=== PATIENT | male | born 1960 | race Caucasian/White ===

== ENCOUNTER 2020-02-26 05:59 | Inpatient (IN) ==
[2020-02-26] MEDS ORDERED: DIAZEPAM 5 MG TABLET PO ONE ×2 (06:00→16:38)
[2020-02-26] MEDS ORDERED: diphenhydrAMINE CAP 25 MG CAPSULE PO ONE (06:00)
[2020-02-26] MEDS ORDERED: ASPIRIN 325 MG TABLET PO ONE (06:00)
[2020-02-26] MEDS ORDERED: SODIUM CHLORIDE 0.9% 1,000 ML IV SCH (06:00)
[2020-02-26] MEDS ORDERED: diphenhydrAMINE CAP 25 MG CAPSULE ONE (06:49)
[2020-02-26] MEDS ORDERED: DIAZEPAM 5 MG TABLET ONE (06:49)
[2020-02-26 07:00] LABS: Basophils % 0.4 % (0.0-0.8); Eosinophils # 0.2 10*3/uL (0.0-0.87); Eosinophils % 3.5 % (0.00-10.9); Hematocrit 32.4 VOL% (42.0-52.0); Hemoglobin 9.6 GM/DL (14.0-18.0); Immature Granulocytes % 0.2 %; Immature Granulocytes Absolute 0.01 #; Lymphocytes # 1.3 10*3/uL (1.4-4.0); Lymphocytes % 28.5 % (21.2-54.2); Mean Corpuscular HGB Conc 29.6 GM/DL (32-36); Mean Corpuscular Volume 74.3 FL (87-102); Mean Platelet Volume 10.2 FL (9.6-12.0); Monocytes % 17.4 % (1.7-12.7); Platelet Count 366 T/CUMM (130-400); Red Blood Count 4.36 MC/CUMM (3.8-5.5); Red Cell Distribution Width 14.6 % (9.3-17.3); White Blood Count 4.6 T/CUMM (4-12)
[2020-02-26 07:20] LABS: Eosinophils 5 % (0-10); Lymphocytes 38 % (20-55); Segmented Neutrophils 43 % (50-85); Total Cells Counted 100
[2020-02-26 07:21] LABS: Hypochromasia 1+; Microcytosis 1+; Platelet Estimate Adequate
[2020-02-26 07:31] LABS: Calcium 8.6 MG/DL (8.5-10.1); Osmolality,Calculated 271.8 MOS/KG (273-304)
[2020-02-26] MEDS ORDERED: HEPARIN/NACL 0.9% 2 UNITS/ML 1,000 ML IV ONE (08:13)
[2020-02-26] MEDS ORDERED: NITROGLYCERIN DRIP 0 MG/0 ML BOTTLE IV ONE (08:13)
[2020-02-26] MEDS ORDERED: LIDOCAINE 1% 20 ML VIAL ONE (08:13)
[2020-02-26] MEDS ORDERED: VERAPAMIL 5 MG/2 ML VIAL ONE (08:13)
[2020-02-26] MEDS ORDERED: MIDAZOLAM 2 MG/2 ML VIAL ONE (08:37)
[2020-02-26] MEDS ORDERED: fentaNYL 100 MCG/2 ML VIAL ONE (08:37)
[2020-02-26] MEDS ORDERED: HEPARIN 5,000 UNIT/1 ML VIAL ONE (08:55)
[2020-02-26] MEDS ORDERED: NITROGLYCERIN DRIP 50 MG/250 ML BOTTLE IV ONE (09:00)
[2020-02-26] MEDS ORDERED: ZALEPLON 5 MG CAPSULE PO PRN (09:05)
[2020-02-26] MEDS ORDERED: ONDANSETRON 4 MG/2 ML VIAL IV PRN (09:05)
[2020-02-26] MEDS ORDERED: DEXTROSE 10% 250 ML BAG IV PRN (15:29)
[2020-02-26] MEDS ORDERED: GLUCAGON 1 MG VIAL IM PRN (15:29)
[2020-02-26] MEDS ORDERED: MORPHINE 4 MG/1 ML VIAL IV PRN (15:40)
[2020-02-26] MEDS ORDERED: oxyCODONE/ACETAMINOPHEN 5-325 MG TABLET PO PRN (15:41)
[2020-02-26] MEDS ORDERED: NITROGLYCERIN SL 0.4 MG TABLET SL PRN (15:41)
[2020-02-26] MEDS ORDERED: FAMOTIDINE 20 MG TABLET PO ONE (16:38)
[2020-02-26] MEDS: ATORVASTATIN 80 MG TABLET PO SCH (21:57)
[2020-02-26] MEDS: METOPROLOL TARTRATE 25 MG TABLET PO SCH (21:57)
[2020-02-27 06:04] LABS: Basophils % 0.6 % (0.0-0.8); Eosinophils # 0.2 10*3/uL (0.0-0.87); Eosinophils % 3.9 % (0.00-10.9); Hematocrit 31.2 VOL% (42.0-52.0); Hemoglobin 9.2 GM/DL (14.0-18.0); Immature Granulocytes % 0.2 %; Immature Granulocytes Absolute 0.01 #; Lymphocytes # 1.7 10*3/uL (1.4-4.0); Lymphocytes % 36.8 % (21.2-54.2); Mean Corpuscular HGB Conc 29.5 GM/DL (32-36); Mean Corpuscular Volume 74.3 FL (87-102); Mean Platelet Volume 10.6 FL (9.6-12.0); Monocytes % 16.1 % (1.7-12.7); Neutrophils % 42.4 % (38.7-73.9); Platelet Count 332 T/CUMM (130-400); Red Cell Distribution Width 14.6 % (9.3-17.3); White Blood Count 4.7 T/CUMM (4-12)
[2020-02-27 06:16] LABS: Albumin 2.9 G/DL (3.4-5.0); Bilirubin,Total 0.5 MG/DL (0.2-1.0); Calcium 8.3 MG/DL (8.5-10.1); Osmolality,Calculated 273.7 MOS/KG (273-304); Total Protein 6.1 G/DL (6.4-8.3)
[2020-02-27 06:25] LABS: Calcium 8.4 MG/DL (8.5-10.1); Osmolality,Calculated 271.7 MOS/KG (273-304)
[2020-02-27 07:22] LABS: Anisocytosis 1+; Band Neutrophils 12 % (0-10); Lymphocytes 40 % (20-55); Platelet Estimate Normal; Segmented Neutrophils 31 % (50-85); Total Cells Counted 100
[2020-02-27] MEDS: METOPROLOL TARTRATE 25 MG TABLET PO SCH ×2 (09:04→21:57)
[2020-02-27] MEDS: PANTOPRAZOLE 40 MG TABLET PO SCH (09:04)
[2020-02-27] MEDS: ASPIRIN EC 325 MG TABLET PO SCH (09:04)
[2020-02-27] MEDS: ISOSORBIDE MONONITRATE 30 MG TABLET PO SCH (09:04)
[2020-02-27] MEDS: CHLORHEXIDINE 4% SOLN 118 ML BOTTLE TOP SCH ×3 (09:05→21:57)
[2020-02-27] MEDS: CHLORHEXIDINE 0.12% ORAL RINSE 60 ML BOTTLE SWISH/SPIT SCH ×2 (09:05→21:56)
[2020-02-27] MEDS: lisinopriL 20 MG TABLET PO SCH (09:05)
[2020-02-27] MEDS ORDERED: METOCLOPRAMIDE 10 MG/2 ML VIAL ONE (13:37)
[2020-02-27 13:49] LABS: ABG Base Excess 2.7 MMOL/L (-2.5-2.5); ABG HCO3 26.8 MMOL/L (20-26); ABG Oxygen Saturation 96.5 % (95-100); ABG PCO2 43.3 MM HG (35-48); ABG PH 7.413 (7.35-7.45); ABG PO2 81.9 MM HG (80-95); ABG TCO2 25.4 MMOL/L (23-27); Allen Test Positive; Pt O2 Delivery Device Room Air
[2020-02-27] MEDS ORDERED: SIMVASTATIN 20 MG TABLET PO SCH (21:00)
[2020-02-27] MEDS: ATORVASTATIN 80 MG TABLET PO SCH (21:56)
[2020-02-28] MEDS ORDERED: PAPAVERINE 60 MG/2 ML VIAL ONE (04:33)
[2020-02-28] MEDS ORDERED: VANCOMYCIN 1,000 MG VIAL ONE (04:33)
[2020-02-28] MEDS ORDERED: VANCOMYCIN 500 MG VIAL ONE (04:33)
[2020-02-28] MEDS ORDERED: FAMOTIDINE 20 MG TABLET PO ONE (05:00)
[2020-02-28] MEDS ORDERED: CEFUROXIME INJ 1,500 MG in SYRINGE 1 EACH IV ONE (05:00)
[2020-02-28] MEDS ORDERED: DIAZEPAM 5 MG TABLET PO ONE (05:00)
[2020-02-28] MEDS ORDERED: SODIUM CHLORIDE 0.9% 1,000 ML IV SCH (05:00)
[2020-02-28 07:40] LABS: ABG Base Excess 1.6 MMOL/L (-2.5-2.5); ABG HCO3 25.9 MMOL/L (20-26); ABG PCO2 37.9 MM HG (35-48); ABG TCO2 23.9 MMOL/L (23-27); Glucose Heart Surgery 97 MG/DL (74-106); Hematocrit Heart Surgery 25.4 PERCENT (42-52); Hemoglobin Heart Surgery 8.2 G/DL (14.0-18.0); Ionized Calcium Arterial 1.08 MMOL/L (1.21-1.46); PCO2 Patient Temp Arterial 37.9 MMHG; Patient Temperature 37 CELCIUS; Potassium Heart/CVR 3.3 MMOL/L (3.5-5.1); Sodium Heart/CVR 138 MMOL/L (135-145)
[2020-02-28 08:31] LABS: Apearance,Urine CLEAR (Clear); Bilirubin,Urine Negative (Negative); Blood, Urine Negative (Negative); Glucose,Urine (UA) Negative (Negative); Ketones,Urine Negative (Negative); Mucus,Urine Occasional /LPF (Occasional); Nitrite,Urine Negative (Negative); Protein,Urine Negative; Urine Color Yellow (Yellow); Urine Specific Gravity 1.013 (1.001-1.035); Urine Urobilinogen < 2.0 EU/DL (0.2-1.0)
[2020-02-28 09:09] LABS: Hematocrit Heart Surgery 18.1 PERCENT (42-52); PCO2 Patient Temp Venous 34.1 MM HG; PH Patient Temp Venous 7.502; PO2 Patient Temp Venous 29.9 MM HG; Potassium Heart/CVR 3.9 MMOL/L (3.5-5.1); VBG Base Excess 3.7 MEQ/L (0-4); VBG HCO3 27.5 MEQ/L (24-28); VBG Oxygen Saturation 70.7 %; VBG PCO2 39.4 MMHG (41-51); VBG PH 7.457; VBG PO2 36.8 MMHG (17-40)
[2020-02-28 09:10] LABS: Hemoglobin Heart Surgery 5.7 G/DL (14.0-18.0)
[2020-02-28] MEDS ORDERED: HEPARIN/NACL 0.9% 2 UNITS/ML 500 ML IV ONE (09:16)
[2020-02-28] MEDS ORDERED: SEVOFLURANE 1 UNIT/15 MINUTE INH ONE (09:16)
[2020-02-28] MEDS ORDERED: LIDOCAINE 2% 5 ML VIAL ONE ×2 (09:16→10:36)
[2020-02-28] MEDS ORDERED: CALCIUM CHLORIDE 1,000 MG/10 ML VIAL IV ONE (09:16)
[2020-02-28] MEDS ORDERED: PHENYLEPHRINE DRIP 20 MG/250 ML PREMIX IV ONE (09:16)
[2020-02-28] MEDS ORDERED: MIDAZOLAM 10 MG/2 ML VIAL ONE ×2 (09:17)
[2020-02-28] MEDS ORDERED: MINERAL OIL/PETROLATUM OPH OINT 3.5 GM TUBE ONE (09:17)
[2020-02-28] MEDS ORDERED: SUFentanil 250 MCG/5 ML AMP ONE (09:17)
[2020-02-28] MEDS ORDERED: VECURONIUM 10 MG VIAL IV ONE (09:17)
[2020-02-28] MEDS ORDERED: SODIUM CHLORIDE 0.9% 250 ML IV ONE (09:18)
[2020-02-28] MEDS ORDERED: AMINOCAPROIC ACID 5,000 MG/20 ML VIAL ONE (09:18)
[2020-02-28] MEDS ORDERED: SODIUM CHLORIDE 0.9% 1,000 ML IV ONE (09:18)
[2020-02-28] MEDS ORDERED: PHENYLEPHRINE 1 MG/10 ML SYRINGE IV ONE (09:18)
[2020-02-28] MEDS ORDERED: ETOMIDATE 40 MG/20 ML VIAL IV ONE (09:18)
[2020-02-28] MEDS ORDERED: SODIUM CHLORIDE 0.9% 100 ML IV ONE (09:18)
[2020-02-28] MEDS ORDERED: LACTATED RINGERS 1,000 ML IV ONE (09:18)
[2020-02-28 09:37] LABS: Hematocrit Heart Surgery 23.6 PERCENT (42-52); Hemoglobin Heart Surgery 7.6 G/DL (14.0-18.0); PCO2 Patient Temp Venous 33.4 MM HG; PH Patient Temp Venous 7.49; Potassium Heart/CVR 4.2 MMOL/L (3.5-5.1); VBG Base Excess 2.4 MEQ/L (0-4); VBG HCO3 26.2 MEQ/L (24-28); VBG Oxygen Saturation 74.8 %; VBG PCO2 38.6 MMHG (41-51); VBG PH 7.445; VBG PO2 38.2 MMHG (17-40)
[2020-02-28] MEDS ORDERED: PHENYLEPHRINE DRIP 40 MG/250 ML PREMIX IV ONE (09:40)
[2020-02-28] MEDS ORDERED: POTASSIUM CHLORIDE RIDER 100 ML IV ONE (09:40)
[2020-02-28 10:25] LABS: ABG Base Excess 0.6 MMOL/L (-2.5-2.5); ABG PCO2 40.5 MM HG (35-48); ABG PH 7.403 (7.35-7.45); ABG TCO2 23.3 MMOL/L (23-27); Glucose Heart Surgery 192 MG/DL (74-106); Hematocrit Heart Surgery 27.8 PERCENT (42-52); Ionized Calcium Arterial 1.18 MMOL/L (1.21-1.46); PCO2 Patient Temp Arterial 40.5 MMHG; PH Patient Temp Arterial 7.403; Patient Temperature 37 CELCIUS; Potassium Heart/CVR 3.6 MMOL/L (3.5-5.1); Sodium Heart/CVR 135 MMOL/L (135-145)
[2020-02-28] MEDS ORDERED: PROTAMINE SULFATE 250 MG/25 ML VIAL IV ONE (10:36)
[2020-02-28] MEDS ORDERED: SODIUM BICARBONATE 50 MEQ/50 ML VIAL IV ONE (10:36)
[2020-02-28] MEDS ORDERED: ALBUMIN 25% 25 GM/100 ML VIAL IV ONE (10:36)
[2020-02-28] MEDS ORDERED: DEXTROSE 5% KCL 20 MEQ 20 MEQ/1,000 ML BAG IV ONE (10:36)
[2020-02-28] MEDS ORDERED: MANNITOL 100 GM/500 ML BAG IV ONE (10:36)
[2020-02-28] MEDS ORDERED: HEPARIN 10,000 UNIT/10 ML VIAL ONE (10:36)
[2020-02-28] MEDS ORDERED: methylPREDNISolone SOD SUC 1,000 MG/8 ML VIAL ONE (10:36)
[2020-02-28] MEDS ORDERED: MAGNESIUM SULFATE 5 GM/10 ML VIAL IV ONE (10:36)
[2020-02-28] MEDS ORDERED: PROTAMINE SULFATE 50 MG/5 ML VIAL IV ONE (10:37)
[2020-02-28] MEDS ORDERED: FUROSEMIDE 20 MG/2 ML VIAL ONE (10:37)
[2020-02-28] MEDS ORDERED: MAGNESIUM SULF RIDER 2 GM in PREMIX 1 EACH IV PRN (11:02)
[2020-02-28] MEDS ORDERED: MORPHINE 4 MG/1 ML VIAL IV PRN (11:02)
[2020-02-28] MEDS ORDERED: SODIUM CHLORIDE 0.45% 1,000 ML IV SCH (11:02)
[2020-02-28] MEDS ORDERED: CALCIUM CHLORIDE 1,000 MG/10 ML SYRINGE IV PRN (11:02)
[2020-02-28] MEDS ORDERED: MIDAZOLAM 2 MG/2 ML VIAL IV PRN (11:02)
[2020-02-28] MEDS ORDERED: LACTATED RINGERS 250 ML IV PRN (11:02)
[2020-02-28] MEDS ORDERED: PHENYLEPHRINE DRIP 40 MG/250 ML PREMIX IV PRN (11:02)
[2020-02-28] MEDS ORDERED: CHLORHEXIDINE 4% SOLN 118 ML BOTTLE TOP PRN (11:02)
[2020-02-28] MEDS ORDERED: INSULIN REGULAR 100 UNIT/ML IV PRN (11:02)
[2020-02-28] MEDS ORDERED: VECURONIUM 10 MG VIAL IV PRN ×2 (11:02)
[2020-02-28] MEDS ORDERED: ONDANSETRON 4 MG/2 ML VIAL IV PRN (11:02)
[2020-02-28] MEDS ORDERED: MAGNESIUM SULF RIDER 4 GM in PREMIX 1 EACH IV PRN (11:02)
[2020-02-28] MEDS ORDERED: DEXTROSE 10% 250 ML BAG IV PRN ×2 (11:02)
[2020-02-28] MEDS ORDERED: ACETAMINOPHEN 650 MG SUPP RECTAL PRN (11:02)
[2020-02-28] MEDS ORDERED: MORPHINE 10 MG/1 ML VIAL IV PRN (11:02)
[2020-02-28] MEDS ORDERED: INSULIN REGULAR 100 UNIT/ML IV ONE (11:02)
[2020-02-28] MEDS ORDERED: ALBUMIN 5% 12.5 GM in PREMIX 1 EACH IV PRN (11:02)
[2020-02-28] MEDS ORDERED: NITROPRUSSIDE 100 MG in DEXTROSE 5% 250 ML IV PRN (11:02)
[2020-02-28] MEDS: LACTATED RINGERS 1,000 ML IV PRN ×4 (11:15→15:16)
[2020-02-28 11:29] LABS: ABG Base Excess 2.4 MMOL/L (-2.5-2.5); ABG HCO3 26.6 MMOL/L (20-26); ABG Oxygen Saturation 99.9 % (95-100); ABG PCO2 43.4 MM HG (35-48); ABG PH 7.408 (7.35-7.45); ABG TCO2 24.9 MMOL/L (23-27); Glucose Heart Surgery 164 MG/DL (74-106); Hematocrit Heart Surgery 30.7 PERCENT (42-52); Hemoglobin Heart Surgery 9.9 G/DL (14.0-18.0); Potassium Heart/CVR 3.5 MMOL/L (3.5-5.1)
[2020-02-28 11:48] LABS: Basophils % 0.2 % (0.0-0.8); Eosinophils # 0.1 10*3/uL (0.0-0.87); Eosinophils % 0.7 % (0.00-10.9); Hematocrit 31.7 VOL% (42.0-52.0); Hemoglobin 9.7 GM/DL (14.0-18.0); Immature Granulocytes % 0.8 %; Immature Granulocytes Absolute 0.08 #; Lymphocytes # 0.7 10*3/uL (1.4-4.0); Lymphocytes % 6.8 % (21.2-54.2); Mean Corpuscular HGB Conc 30.6 GM/DL (32-36); Mean Corpuscular Volume 74.9 FL (87-102); Mean Platelet Volume 10.2 FL (9.6-12.0); Monocytes % 4.7 % (1.7-12.7); Neutrophils % 86.8 % (38.7-73.9); Platelet Count 267 T/CUMM (130-400); Red Blood Count 4.23 MC/CUMM (3.8-5.5); Red Cell Distribution Width 15.9 % (9.3-17.3); White Blood Count 10.3 T/CUMM (4-12)
[2020-02-28] MEDS: SODIUM CHLORIDE 0.45% 1,000 ML IV SCH (11:49)
[2020-02-28 11:53] LABS: Albumin 3.2 G/DL (3.4-5.0); Bilirubin,Total 0.7 MG/DL (0.2-1.0); Calcium 7.8 MG/DL (8.5-10.1); Osmolality,Calculated 275.7 MOS/KG (273-304); Total Protein 6.1 G/DL (6.4-8.3)
[2020-02-28 11:54] LABS: INR 1.2; PT Patient Result 12.4 SECS (9.8-11.9); Partial Thromboplastin Time 27.3 SECS (23.9-33.8)
[2020-02-28] MEDS: POTASSIUM CHLORIDE RIDER 20 MEQ in PREMIX 1 EACH IV PRN ×3 (11:54→16:30)
[2020-02-28 11:58] LABS: CKMB % 6.7 %
[2020-02-28 12:01] LABS: Troponin I 5.03 NG/ML (0.00-0.045)
[2020-02-28] MEDS: POTASSIUM CHLORIDE RIDER 10 MEQ in PREMIX 1 EACH IV PRN ×2 (12:24→15:11)
[2020-02-28] MEDS: INSULIN REGULAR DRIP 100 ML IV SCH (13:00)
[2020-02-28 13:03] LABS: Hypochromasia 3+; Poikilocytosis 1+
[2020-02-28 13:04] LABS: Ovalocytes Slight
[2020-02-28] MEDS ORDERED: NITROPRUSSIDE 50 MG/2 ML VIAL ONE (13:04)
[2020-02-28 14:20] LABS: ABG Base Excess 2.5 MMOL/L (-2.5-2.5); ABG HCO3 26.7 MMOL/L (20-26); ABG Oxygen Saturation 99.6 % (95-100); ABG PCO2 44.4 MM HG (35-48); ABG PH 7.402 (7.35-7.45); ABG TCO2 25.3 MMOL/L (23-27); Glucose Heart Surgery 101 MG/DL (74-106); Hematocrit Heart Surgery 29.2 PERCENT (42-52); Hemoglobin Heart Surgery 9.4 G/DL (14.0-18.0); Potassium Heart/CVR 3.4 MMOL/L (3.5-5.1)
[2020-02-28] MEDS: KETOROLAC 30 MG/1 ML VIAL IV SCH ×2 (14:34→19:18)
[2020-02-28] MEDS: MIDAZOLAM 10 MG/2 ML VIAL IV PRN ×2 (14:36→15:35)
[2020-02-28] MEDS ORDERED: HALOPERIDOL 5 MG/ML AMP IV ONE (16:13)
[2020-02-28 16:30] LABS: ABG Base Excess 2.3 MMOL/L (-2.5-2.5); ABG HCO3 26.5 MMOL/L (20-26); ABG Oxygen Saturation 99.2 % (95-100); ABG PCO2 45.3 MM HG (35-48); ABG PH 7.393 (7.35-7.45); ABG TCO2 25.3 MMOL/L (23-27); Glucose Heart Surgery 164 MG/DL (74-106); Hematocrit Heart Surgery 28.7 PERCENT (42-52); Hemoglobin Heart Surgery 9.2 G/DL (14.0-18.0)
[2020-02-28 18:41] LABS: ABG Base Excess 1.8 MMOL/L (-2.5-2.5); ABG PCO2 46.1 MM HG (35-48); ABG PH 7.381 (7.35-7.45); ABG TCO2 24.7 MMOL/L (23-27); Glucose Heart Surgery 160 MG/DL (74-106); Hematocrit Heart Surgery 33.4 PERCENT (42-52); Hemoglobin Heart Surgery 10.8 G/DL (14.0-18.0); Potassium Heart/CVR 4.4 MMOL/L (3.5-5.1)
[2020-02-28] MEDS: CEFUROXIME INJ 1,500 MG in SYRINGE 1 EACH IV SCH (19:21)
[2020-02-28 19:56] LABS: CKMB % 5.7 %
[2020-02-28 20:00] LABS: Troponin I 7.62 NG/ML (0.00-0.045)
[2020-02-28] MEDS: CHLORHEXIDINE 0.12% ORAL RINSE 60 ML BOTTLE SWISH/SPIT SCH (21:06)
[2020-02-28] MEDS ORDERED: FUROSEMIDE 40 MG/4 ML VIAL IV ONE (23:14)
[2020-02-29] MEDS: KETOROLAC 30 MG/1 ML VIAL IV SCH ×4 (03:11→19:58)
[2020-02-29 04:28] LABS: Basophils % 0.1 % (0.0-0.8); Hematocrit 33.7 VOL% (42.0-52.0); Hemoglobin 10.8 GM/DL (14.0-18.0); Immature Granulocytes % 0.4 %; Immature Granulocytes Absolute 0.05 #; Lymphocytes # 0.7 10*3/uL (1.4-4.0); Mean Corpuscular Volume 72.6 FL (87-102); Mean Platelet Volume 10.9 FL (9.6-12.0); Neutrophils % 87.5 % (38.7-73.9); Platelet Count 268 T/CUMM (130-400); Red Blood Count 4.64 MC/CUMM (3.8-5.5); Red Cell Distribution Width 15.9 % (9.3-17.3); White Blood Count 12.1 T/CUMM (4-12)
[2020-02-29 04:29] LABS: ABG HCO3 26.2 MMOL/L (20-26); ABG Oxygen Saturation 97.5 % (95-100); ABG PCO2 41.2 MM HG (35-48); ABG PH 7.419 (7.35-7.45); ABG PO2 91.5 MM HG (80-95); ABG TCO2 23.9 MMOL/L (23-27); Glucose Heart Surgery 134 MG/DL (74-106); Hematocrit Heart Surgery 33.9 PERCENT (42-52); Potassium Heart/CVR 3.6 MMOL/L (3.5-5.1)
[2020-02-29] MEDS: POTASSIUM CHLORIDE RIDER 20 MEQ in PREMIX 1 EACH IV PRN ×2 (04:48→05:20)
[2020-02-29 05:01] LABS: Bilirubin,Direct 0.11 MG/DL (0.0-0.20); Bilirubin,Total 0.4 MG/DL (0.2-1.0); CKMB % 5.2 %; Calcium 7.8 MG/DL (8.5-10.1); Osmolality,Calculated 276.5 MOS/KG (273-304)
[2020-02-29 05:02] LABS: Troponin I 6.14 NG/ML (0.00-0.045)
[2020-02-29 05:05] LABS: Hypochromasia Slight; Ovalocytes Slight; Platelet Estimate Adequate
[2020-02-29] MEDS: CEFUROXIME INJ 1,500 MG in SYRINGE 1 EACH IV SCH ×2 (06:04→18:17)
[2020-02-29] MEDS ORDERED: LORazepam 2 MG/1 ML VIAL IV ONE ×2 (08:40→09:20)
[2020-02-29] MEDS: ASPIRIN EC 81 MG TABLET PO SCH (08:58)
[2020-02-29] MEDS: THIAMINE 100 MG TABLET PO SCH (08:58)
[2020-02-29] MEDS: FOLIC ACID 1 MG TABLET PO SCH (08:58)
[2020-02-29] MEDS: lisinopriL 20 MG TABLET PO SCH ×2 (08:58→19:01)
[2020-02-29] MEDS: MULTIVITAMIN (CENTRUM) TABLET PO SCH (08:58)
[2020-02-29] MEDS: CHLORHEXIDINE 0.12% ORAL RINSE 60 ML BOTTLE SWISH/SPIT SCH ×3 (08:59→21:44)
[2020-02-29] MEDS: INSULIN REGULAR DRIP 100 ML IV SCH (11:05)
[2020-02-29 11:08] LABS: ABG PCO2 41.7 MM HG (35-48); ABG PH 7.428 (7.35-7.45); ABG TCO2 24.7 MMOL/L (23-27); Glucose Heart Surgery 145 MG/DL (74-106); Hematocrit Heart Surgery 34.1 PERCENT (42-52); Hemoglobin Heart Surgery 11.1 G/DL (14.0-18.0); Potassium Heart/CVR 3.7 MMOL/L (3.5-5.1)
[2020-02-29] MEDS: POTASSIUM CHLORIDE RIDER 10 MEQ in PREMIX 1 EACH IV PRN ×2 (11:17→12:16)
[2020-02-29 11:39] LABS: CKMB % 3.3 %
[2020-02-29 11:41] LABS: Troponin I 4.29 NG/ML (0.00-0.045)
[2020-02-29] MEDS ORDERED: DEXTROSE 10% 250 ML BAG IV PRN (12:13)
[2020-02-29] MEDS ORDERED: MAGNESIUM SULF RIDER 2 GM in PREMIX 1 EACH IV PRN (12:13)
[2020-02-29] MEDS ORDERED: SODIUM CHLOR 0.45% KCL 20 MEQ 20 MEQ/1,000 ML BAG IV SCH (12:13)
[2020-02-29] MEDS ORDERED: ACETAMINOPHEN 325 MG TABLET PO PRN (12:13)
[2020-02-29] MEDS ORDERED: GLUCAGON 1 MG VIAL IM PRN (12:13)
[2020-02-29] MEDS ORDERED: MAGNESIUM SULF RIDER 4 GM in PREMIX 1 EACH IV PRN (12:13)
[2020-02-29] MEDS ORDERED: ONDANSETRON 4 MG/2 ML VIAL IV PRN (12:13)
[2020-02-29] MEDS ORDERED: ZALEPLON 5 MG CAPSULE PO PRN (12:13)
[2020-02-29] MEDS ORDERED: MAGNESIUM HYDROXIDE SUSP 30 ML UDCUP PO PRN (12:13)
[2020-02-29] MEDS ORDERED: ALUMINUM/MAGNES/SIMETH MAX STR 30 ML UDCUP PO PRN (12:13)
[2020-02-29] MEDS ORDERED: oxyCODONE/ACETAMINOPHEN 5-325 MG TABLET PO PRN (12:13)
[2020-02-29] MEDS: SODIUM CHLORIDE 0.45% 1,000 ML IV SCH (12:33)
[2020-02-29] MEDS: ISOSORBIDE MONONITRATE 30 MG TABLET PO SCH (19:01)
[2020-02-29] MEDS: PANTOPRAZOLE 40 MG TABLET PO SCH (19:01)
[2020-02-29] MEDS: METOPROLOL TARTRATE 25 MG TABLET PO SCH (19:01)
[2020-02-29] MEDS: ASPIRIN EC 325 MG TABLET PO SCH (19:01)
[2020-02-29] MEDS: SIMVASTATIN 20 MG TABLET PO SCH (21:44)
[2020-03-01] MEDS: KETOROLAC 30 MG/1 ML VIAL IV SCH ×4 (03:35→21:25)
[2020-03-01] MEDS ORDERED: FUROSEMIDE 40 MG/4 ML VIAL IV ONE (06:00)
[2020-03-01 06:21] LABS: Basophils % 0.1 % (0.0-0.8); Hematocrit 32.6 VOL% (42.0-52.0); Immature Granulocytes % 0.5 %; Immature Granulocytes Absolute 0.06 #; Lymphocytes # 1.3 10*3/uL (1.4-4.0); Lymphocytes % 11.5 % (21.2-54.2); Mean Corpuscular HGB Conc 30.7 GM/DL (32-36); Mean Corpuscular Volume 75.5 FL (87-102); Mean Platelet Volume 10.9 FL (9.6-12.0); Monocytes % 12.3 % (1.7-12.7); Neutrophils % 75.6 % (38.7-73.9); Platelet Count 257 T/CUMM (130-400); Red Blood Count 4.32 MC/CUMM (3.8-5.5); Red Cell Distribution Width 16.5 % (9.3-17.3); White Blood Count 11.3 T/CUMM (4-12)
[2020-03-01 06:40] LABS: Albumin 2.7 G/DL (3.4-5.0); Bilirubin,Direct 0.1 MG/DL (0.0-0.20); Bilirubin,Total 0.5 MG/DL (0.2-1.0); Calcium 8.1 MG/DL (8.5-10.1); Osmolality,Calculated 273.7 MOS/KG (273-304); Total Protein 5.7 G/DL (6.4-8.3)
[2020-03-01 06:41] LABS: Folate 5.1 NG/ML (5.4-24.0)
[2020-03-01 06:58] LABS: Alanine Aminotransferase 20 U/L (16-61); Albumin 2.6 G/DL (3.4-5.0); Alkaline Phosphatase 71 U/L (45-117); Aspartate Amino Transferase 37 U/L (0-37); Bilirubin,Direct < 0.100 MG/DL (0.0-0.20); Bilirubin,Indirect 0.3 MG/DL (0.0-1.0); Total Protein 5.7 G/DL (6.4-8.3)
[2020-03-01] MEDS ORDERED: oxyCODONE/ACETAMINOPHEN 5-325 MG TABLET PO PRN (07:28)
[2020-03-01] MEDS ORDERED: LORazepam 2 MG/1 ML VIAL IV PRN (08:00)
[2020-03-01] MEDS: MULTIVITAMIN (CENTRUM) TABLET PO SCH (08:30)
[2020-03-01] MEDS: DOCUSATE SODIUM 100 MG CAPSULE PO SCH (08:31)
[2020-03-01] MEDS: lisinopriL 20 MG TABLET PO SCH (08:31)
[2020-03-01] MEDS: FOLIC ACID 1 MG TABLET PO SCH (08:31)
[2020-03-01] MEDS: ASPIRIN EC 81 MG TABLET PO SCH (08:31)
[2020-03-01] MEDS: THIAMINE 100 MG TABLET PO SCH (08:31)
[2020-03-01] MEDS: carvediloL 3.125 MG TABLET PO SCH ×2 (08:31→21:26)
[2020-03-01] MEDS: PANTOPRAZOLE 40 MG TABLET PO SCH (08:32)
[2020-03-01] MEDS: CHLORHEXIDINE 0.12% ORAL RINSE 60 ML BOTTLE SWISH/SPIT SCH ×2 (08:35→21:26)
[2020-03-01] MEDS: SIMVASTATIN 20 MG TABLET PO SCH (21:26)
[2020-03-02] MEDS: KETOROLAC 30 MG/1 ML VIAL IV SCH ×2 (02:42→08:40)
[2020-03-02 06:05] LABS: Basophils % 0.1 % (0.0-0.8); Eosinophils # 0.1 10*3/uL (0.0-0.87); Eosinophils % 0.6 % (0.00-10.9); Hematocrit 33.2 VOL% (42.0-52.0); Hemoglobin 10.2 GM/DL (14.0-18.0); Immature Granulocytes % 0.5 %; Immature Granulocytes Absolute 0.04 #; Lymphocytes # 1.6 10*3/uL (1.4-4.0); Lymphocytes % 19.9 % (21.2-54.2); Mean Corpuscular HGB Conc 30.7 GM/DL (32-36); Mean Corpuscular Volume 74.4 FL (87-102); Mean Platelet Volume 11.3 FL (9.6-12.0); Monocytes % 15.2 % (1.7-12.7); Neutrophils % 63.7 % (38.7-73.9); Platelet Count 262 T/CUMM (130-400); Red Blood Count 4.46 MC/CUMM (3.8-5.5); Red Cell Distribution Width 16.8 % (9.3-17.3); White Blood Count 7.9 T/CUMM (4-12)
[2020-03-02 06:32] LABS: Alanine Aminotransferase 27 U/L (16-61); Albumin 2.7 G/DL (3.4-5.0); Alkaline Phosphatase 70 U/L (45-117); Aspartate Amino Transferase 37 U/L (0-37); Bilirubin,Direct < 0.100 MG/DL (0.0-0.20); Blood Urea Nitrogen 11 MG/DL (7-18); Calcium 7.8 MG/DL (8.5-10.1); Estimated Glom Filtration Rate 140 ML/MIN; Glucose 92 MG/DL (74-106); Osmolality,Calculated 277.4 MOS/KG (273-304); Total Protein 6.1 G/DL (6.4-8.3)
[2020-03-02 06:36] LABS: Alanine Aminotransferase 27 U/L (16-61); Albumin 2.7 G/DL (3.4-5.0); Alkaline Phosphatase 68 U/L (45-117); Aspartate Amino Transferase 37 U/L (0-37); Bilirubin,Indirect 0.7 MG/DL (0.0-1.0)
[2020-03-02] MEDS: POTASSIUM CHLORIDE 20 MEQ TABLET PO PRN ×2 (06:45→08:39)
[2020-03-02] MEDS: CHLORHEXIDINE 0.12% ORAL RINSE 60 ML BOTTLE SWISH/SPIT SCH (08:39)
[2020-03-02] MEDS: MULTIVITAMIN (CENTRUM) TABLET PO SCH (08:39)
[2020-03-02] MEDS: PANTOPRAZOLE 40 MG TABLET PO SCH (08:39)
[2020-03-02] MEDS: lisinopriL 20 MG TABLET PO SCH (08:39)
[2020-03-02] MEDS: THIAMINE 100 MG TABLET PO SCH (08:40)
[2020-03-02] MEDS: ASPIRIN EC 81 MG TABLET PO SCH (08:40)
[2020-03-02] MEDS: carvediloL 3.125 MG TABLET PO SCH (08:40)
[2020-03-02] MEDS: FOLIC ACID 1 MG TABLET PO SCH (08:40)
[2020-03-02] MEDS: DOCUSATE SODIUM 100 MG CAPSULE PO SCH (08:40)
[2020-03-02] MEDS ORDERED: carvediloL 6.25 MG TABLET PO SCH (09:00)
[2020-03-02] MEDS ORDERED: ASPIRIN EC 325 MG TABLET PO SCH (09:00)
[2020-03-02 12:27] VITALS: BP 137/78
== END 2020-03-02 15:52 | disposition home or self-care (01) | DRG 234 ==
LOC: N.CL 05:59 → N.TELEN 15:33 → N.CVR 02-28 11:42 → N.TELES 02-29 17:27
PROVIDERS: ADMIT Internal Medicine Cardiovascular Disease; ATTEND Internal Medicine Cardiovascular Disease

== ENCOUNTER 2020-11-08 11:39 | Inpatient (IN) ==
[2020-11-08] MEDS ORDERED: SODIUM CHLORIDE 0.9% 1,000 ML IV PRN (12:22)
[2020-11-08] MEDS ORDERED: PANTOPRAZOLE 40 MG VIAL IV STA (12:23)
[2020-11-08 12:36] LABS: Albumin 3.8 G/DL (3.4-5.0); Bilirubin,Total 0.5 MG/DL (0.2-1.0); Calcium 8.7 MG/DL (8.5-10.1); Potassium 3.9 MMOL/L (3.5-5.1); Total Protein 7.6 G/DL (6.4-8.3)
[2020-11-08 12:57] LABS: Basophils % 0.3 % (0.0-0.8); Eosinophils # 0.1 10*3/uL (0.0-0.87); Eosinophils % 2.4 % (0.00-10.9); Immature Granulocytes % 0.5 %; Immature Granulocytes Absolute 0.02 #; Lymphocytes # 1.1 10*3/uL (1.4-4.0); Mean Corpuscular HGB Conc 22.8 GM/DL (32-36); Mean Corpuscular Volume 58.4 FL (87-102); Mean Platelet Volume 10.4 FL (9.6-12.0); Monocytes % 10.3 % (1.7-12.7); NRBC # 0.02 10*3/uL; Neutrophils % 56.5 % (38.7-73.9); Platelet Count 412 T/CUMM (130-400); Red Blood Count 3.08 MC/CUMM (3.8-5.5); Red Cell Distribution Width 21.3 % (9.3-17.3); White Blood Count 3.8 T/CUMM (4-12)
[2020-11-08 12:59] LABS: Hemoglobin 4.1 GM/DL (14.0-18.0)
[2020-11-08 13:06] LABS: Atypical Lymphocytes Moderate; Band Neutrophils 2 % (0-10); Eosinophils 2 % (0-10); Hypochromasia 4+; Lymphocytes 26 % (20-55); Microcytosis 4+; Segmented Neutrophils 57 % (50-85); Total Cells Counted 100
[2020-11-08 13:08] LABS: Polychromasia Slight; Reactive Lymphocytes Few; Schistocytes Few
[2020-11-08 13:09] LABS: Giant Platelets Few; Ovalocytes Few; Platelet Estimate Increased; Poikilocytosis 3+
[2020-11-08] MEDS ORDERED: DEXTROSE 50% 25 GM/50 ML VIAL IV PRN (13:35)
[2020-11-08] MEDS ORDERED: GLUCAGON 1 MG VIAL IM PRN (13:35)
[2020-11-08] MEDS ORDERED: ONDANSETRON 4 MG/2 ML VIAL IV PRN (13:35)
[2020-11-08 15:23] LABS: % Iron Saturation 1.3 % (18-50); Ferritin 1.1 ng/ml (26-388)
[2020-11-08 15:25] LABS: Folate 14.9 NG/ML (5.38-24.0)
[2020-11-08 16:19] LABS: Hematocrit 21.7 VOL% (42.0-52.0)
[2020-11-08 16:36] LABS: Hemoglobin 5.3 GM/DL (14.0-18.0)
[2020-11-08] MEDS: carvediloL 3.125 MG TABLET PO SCH (17:22)
[2020-11-08] MEDS: ATORVASTATIN 80 MG TABLET PO SCH (21:32)
[2020-11-08 23:15] LABS: Hematocrit 20.8 VOL% (42.0-52.0)
[2020-11-08 23:20] LABS: Hemoglobin 5.6 GM/DL (14.0-18.0)
[2020-11-09] MEDS ORDERED: SODIUM CHLORIDE 0.9% 1,000 ML IV PRN ×2 (00:11→03:32)
[2020-11-09 07:36] LABS: Basophils % 0.8 % (0.0-0.8); Eosinophils # 0.1 10*3/uL (0.0-0.87); Eosinophils % 3.3 % (0.00-10.9); Hematocrit 23.2 VOL% (42.0-52.0); Hemoglobin 6.5 GM/DL (14.0-18.0); Immature Granulocytes % 0.3 %; Immature Granulocytes Absolute 0.01 #; Lymphocytes # 1.3 10*3/uL (1.4-4.0); Lymphocytes % 34.8 % (21.2-54.2); Mean Platelet Volume 9.7 FL (9.6-12.0); Monocytes % 14.4 % (1.7-12.7); NRBC # 0.02 10*3/uL; Neutrophils % 46.4 % (38.7-73.9); Platelet Count 271 T/CUMM (130-400); Red Blood Count 3.57 MC/CUMM (3.8-5.5); Red Cell Distribution Width 29.7 % (9.3-17.3); White Blood Count 3.7 T/CUMM (4-12)
[2020-11-09 07:38] LABS: Albumin 3.4 G/DL (3.4-5.0); Bilirubin,Total 0.9 MG/DL (0.2-1.0); Calcium 8.5 MG/DL (8.5-10.1); Osmolality,Calculated 274.7 MOS/KG (273-304); Potassium 3.9 MMOL/L (3.5-5.1); Total Protein 6.5 G/DL (6.4-8.3)
[2020-11-09 07:46] LABS: Eosinophils 3 % (0-10); Hypochromasia 2+; Lymphocytes 37 % (20-55); Microcytosis 1+; Nucleated Red Blood Cells 1 (0-5); Platelet Estimate Adequate; Segmented Neutrophils 44 % (50-85); Total Cells Counted 100
[2020-11-09] MEDS: carvediloL 3.125 MG TABLET PO SCH ×2 (08:35→17:57)
[2020-11-09] MEDS: PANTOPRAZOLE 40 MG VIAL IV SCH (08:36)
[2020-11-09 12:09] LABS: Hematocrit 28.9 VOL% (42.0-52.0)
[2020-11-09 14:28] LABS: Hematocrit 27.6 VOL% (42.0-52.0); Hemoglobin 7.8 GM/DL (14.0-18.0)
[2020-11-09 20:04] LABS: Hemoglobin 7.9 GM/DL (14.0-18.0)
[2020-11-09] MEDS: ATORVASTATIN 80 MG TABLET PO SCH (21:02)
[2020-11-10 05:58] LABS: Basophils % 0.8 % (0.0-0.8); Eosinophils # 0.1 10*3/uL (0.0-0.87); Eosinophils % 3.6 % (0.00-10.9); Hematocrit 25.4 VOL% (42.0-52.0); Hemoglobin 7.2 GM/DL (14.0-18.0); Immature Granulocytes % 0.3 %; Immature Granulocytes Absolute 0.01 #; Lymphocytes # 1.4 10*3/uL (1.4-4.0); Lymphocytes % 35.6 % (21.2-54.2); Mean Corpuscular HGB Conc 28.3 GM/DL (32-36); Mean Corpuscular Volume 68.1 FL (87-102); Neutrophils % 45.7 % (38.7-73.9); Platelet Count 285 T/CUMM (130-400); Red Blood Count 3.73 MC/CUMM (3.8-5.5); Red Cell Distribution Width 30.5 % (9.3-17.3); White Blood Count 3.9 T/CUMM (4-12)
[2020-11-10 06:24] LABS: Calcium 8.6 MG/DL (8.5-10.1); Hypochromasia 2+; Microcytosis 1+; Osmolality,Calculated 279.3 MOS/KG (273-304); Ovalocytes Slight; Platelet Estimate Adequate
[2020-11-10] MEDS ORDERED: LACTATED RINGERS 1,000 ML IV SCH (08:00)
[2020-11-10] MEDS: PANTOPRAZOLE 40 MG VIAL IV SCH (08:47)
[2020-11-10] MEDS: carvediloL 3.125 MG TABLET PO SCH ×2 (08:49→16:04)
[2020-11-10] MEDS ORDERED: LIDOCAINE 2% 5 ML VIAL ONE (10:55)
[2020-11-10] MEDS ORDERED: propofoL 200 MG/20 ML VIAL IV ONE ×2 (10:55→11:05)
[2020-11-10] MEDS: ATORVASTATIN 80 MG TABLET PO SCH (21:18)
[2020-11-11 05:40] LABS: Basophils % 0.7 % (0.0-0.8); Eosinophils # 0.2 10*3/uL (0.0-0.87); Hematocrit 25.8 VOL% (42.0-52.0); Hemoglobin 7.3 GM/DL (14.0-18.0); Immature Granulocytes % 0.2 %; Immature Granulocytes Absolute 0.01 #; Lymphocytes # 1.3 10*3/uL (1.4-4.0); Mean Corpuscular HGB Conc 28.3 GM/DL (32-36); Mean Corpuscular Volume 67.7 FL (87-102); Monocytes % 11.2 % (1.7-12.7); Neutrophils % 53.9 % (38.7-73.9); Platelet Count 332 T/CUMM (130-400); Red Blood Count 3.81 MC/CUMM (3.8-5.5); Red Cell Distribution Width 31.2 % (9.3-17.3); White Blood Count 4.3 T/CUMM (4-12)
[2020-11-11 06:26] LABS: Band Neutrophils 1 % (0-10); Eosinophils 6 % (0-10); Hypochromasia 1+; Lymphocytes 30 % (20-55); Microcytosis 2+; Platelet Estimate Normal; Segmented Neutrophils 53 % (50-85); Total Cells Counted 100
[2020-11-11] MEDS: carvediloL 3.125 MG TABLET PO SCH (08:23)
[2020-11-11] MEDS: PANTOPRAZOLE 40 MG VIAL IV SCH (08:23)
[2020-11-11 12:16] VITALS: BP 123/73
[2020-11-11] MEDS ORDERED: SODIUM CHLORIDE 0.9% 1,000 ML IV PRN (12:41)
== END 2020-11-11 15:10 | disposition home or self-care (01) | DRG 812 ==
LOC: N.ED 11:39 → N.EDINP 13:35 → SUATTDRO 13:35 → N.TELEN 15:04
PROVIDERS: ADMIT Internal Medicine; ATTEND Internal Medicine

== ENCOUNTER 2021-01-28 06:09 | Inpatient (IN) ==
[2021-01-24 11:22] LABS: Basophils % 0.8 % (0.0-0.8); Eosinophils # 0.2 10*3/uL (0.0-0.87); Hemoglobin 11.9 GM/DL (14.0-18.0); Immature Granulocytes Absolute 0.04 #; Lymphocytes # 1.2 10*3/uL (1.4-4.0); Lymphocytes % 30.2 % (21.2-54.2); Mean Corpuscular HGB Conc 30.5 GM/DL (32-36); Mean Corpuscular Volume 82.1 FL (87-102); Mean Platelet Volume 9.4 FL (9.6-12.0); Monocytes % 13.1 % (1.7-12.7); Neutrophils % 49.9 % (38.7-73.9); Platelet Count 301 T/CUMM (130-400); Red Blood Count 4.75 MC/CUMM (3.8-5.5)
[2021-01-24 11:33] LABS: Partial Thromboplastin Time 26.8 SECS (23.9-33.8)
[2021-01-24 11:43] LABS: Atypical Lymphocytes Few; Band Neutrophils 1 % (0-10); Calcium 8.5 MG/DL (8.5-10.1); Eosinophils 6 % (0-10); Hypochromasia 1+; Lymphocytes 31 % (20-55); Microcytosis 1+; Myelocytes 1 %; Osmolality,Calculated 276.7 MOS/KG (273-304); Ovalocytes Slight; Platelet Estimate Normal; Potassium 4.6 MMOL/L (3.5-5.1); Segmented Neutrophils 46 % (50-85); Total Cells Counted 100
[~2021-01-28 06:09] MED LIST: ACETAMINOPHEN 500 MG TABLET PO ONE; ALVIMOPAN 12 MG CAPSULE PO ONE; DIAZEPAM 5 MG TABLET PO ONE; FAMOTIDINE 20 MG TABLET PO ONE; cefOXitin 1,000 MG in SODIUM CHLORIDE 0.9% 100 ML IV ONE
[2021-01-28] MEDS ORDERED: fentaNYL 100 MCG/2 ML VIAL ONE ×2 (06:11→08:32)
[2021-01-28] MEDS ORDERED: MIDAZOLAM 2 MG/2 ML VIAL ONE (06:11)
[2021-01-28] MEDS ORDERED: DEXMEDETOMIDINE 200 MCG/2 ML VIAL ONE (06:12)
[2021-01-28] MEDS ORDERED: DEXAMETHASONE 4 MG/1 ML VIAL ONE ×3 (06:12→07:56)
[2021-01-28] MEDS ORDERED: LIDOCAINE 1% 5 ML VIAL ONE (06:12)
[2021-01-28] MEDS ORDERED: ROPIVACAINE 0.5% 30 ML VIAL ONE (06:12)
[2021-01-28] MEDS ORDERED: DIAZEPAM 5 MG TABLET ONE (06:13)
[2021-01-28] MEDS ORDERED: FAMOTIDINE 20 MG TABLET ONE (06:14)
[2021-01-28] MEDS ORDERED: ACETAMINOPHEN 500 MG TABLET ONE (06:14)
[2021-01-28] MEDS ORDERED: INDOCYANINE GREEN 25 MG VIAL IV ONE (06:32)
[2021-01-28] MEDS ORDERED: TISSUE ADHESIVE 1 EACH APPLICATOR TOP ONE ×2 (06:32→10:40)
[2021-01-28] MEDS: LACTATED RINGERS 1,000 ML IV SCH (06:49)
[2021-01-28] MEDS ORDERED: SEVOFLURANE 1 UNIT/15 MINUTE INH ONE ×13 (07:55→10:32)
[2021-01-28] MEDS ORDERED: propofoL 200 MG/20 ML VIAL IV ONE (07:55)
[2021-01-28] MEDS ORDERED: ROCURONIUM 50 MG/5 ML VIAL IV ONE ×2 (07:55→08:30)
[2021-01-28] MEDS ORDERED: LIDOCAINE 2% 5 ML VIAL ONE (07:55)
[2021-01-28] MEDS ORDERED: PHENYLEPHRINE 1 MG/10 ML SYRINGE IV ONE (07:55)
[2021-01-28] MEDS ORDERED: ONDANSETRON 4 MG/2 ML VIAL ONE (07:56)
[2021-01-28] MEDS ORDERED: KETOROLAC 30 MG/1 ML VIAL ONE (07:56)
[2021-01-28] MEDS ORDERED: LACTATED RINGERS 1,000 ML IV ONE (08:34)
[2021-01-28] MEDS ORDERED: GLYCOPYRROLATE 0.4 MG/2 ML VIAL ONE (09:57)
[2021-01-28] MEDS ORDERED: NEOSTIGMINE 10 MG/10 ML VIAL ONE (10:00)
[2021-01-28] MEDS ORDERED: ONDANSETRON 4 MG/2 ML VIAL IV PRN ×2 (10:40→11:28)
[2021-01-28] MEDS ORDERED: diphenhydrAMINE 50 MG/1 ML VIAL IV PRN (11:28)
[2021-01-28] MEDS ORDERED: PROMETHAZINE INJ 25 MG in SODIUM CHLORIDE 0.9% 50 ML IV PRN (11:28)
[2021-01-28] MEDS ORDERED: MEPERIDINE 25 MG/1 ML VIAL IV PRN (11:28)
[2021-01-28] MEDS: HYDROmorphone 2 MG/1 ML VIAL IV PRN ×4 (11:30→11:45)
[2021-01-28] MEDS: DEXTROSE 5% LACTATED RINGERS 1,000 ML IV SCH ×2 (11:51→20:34)
[2021-01-28 12:40] LABS: Hemoglobin 11.9 GM/DL (14.0-18.0)
[2021-01-28] MEDS: FERROUS SULFATE 325 MG TABLET PO SCH ×2 (15:42→20:32)
[2021-01-28] MEDS: ATORVASTATIN 80 MG TABLET PO SCH (20:32)
[2021-01-28] MEDS: ALVIMOPAN 12 MG CAPSULE PO SCH (20:32)
[2021-01-28] MEDS: MORPHINE 4 MG/1 ML VIAL IV PRN (22:08)
[2021-01-29] MEDS: DEXTROSE 5% LACTATED RINGERS 1,000 ML IV SCH ×3 (02:43→18:38)
[2021-01-29 05:14] LABS: Basophils % 0.1 % (0.0-0.8); Hematocrit 35.5 VOL% (42.0-52.0); Hematocrit 36.7 VOL% (42.0-52.0); Hemoglobin 11.4 GM/DL (14.0-18.0); Hemoglobin 11.5 GM/DL (14.0-18.0); Immature Granulocytes % 0.5 %; Immature Granulocytes Absolute 0.07 #; Lymphocytes # 0.8 10*3/uL (1.4-4.0); Lymphocytes % 5.2 % (21.2-54.2); Mean Corpuscular HGB Conc 31.3 GM/DL (32-36); Mean Corpuscular Volume 81.9 FL (87-102); Mean Platelet Volume 9.8 FL (9.6-12.0); Monocytes % 9.3 % (1.7-12.7); Neutrophils % 84.9 % (38.7-73.9); Platelet Count 312 T/CUMM (130-400); Red Blood Count 4.48 MC/CUMM (3.8-5.5); Red Cell Distribution Width 17.2 % (9.3-17.3); White Blood Count 14.6 T/CUMM (4-12)
[2021-01-29 05:39] LABS: Calcium 8.5 MG/DL (8.5-10.1); Osmolality,Calculated 269.2 MOS/KG (273-304); Potassium 4.7 MMOL/L (3.5-5.1)
[2021-01-29] MEDS: LACTATED RINGERS 1,000 ML IV SCH (06:06)
[2021-01-29] MEDS: carvediloL 6.25 MG TABLET PO SCH (08:58)
[2021-01-29] MEDS: ASPIRIN EC 81 MG TABLET PO SCH (08:58)
[2021-01-29] MEDS: FERROUS SULFATE 325 MG TABLET PO SCH ×3 (08:58→20:16)
[2021-01-29] MEDS: ALVIMOPAN 12 MG CAPSULE PO SCH ×2 (08:59→20:16)
[2021-01-29] MEDS: PANTOPRAZOLE 40 MG TABLET PO SCH (08:59)
[2021-01-29] MEDS: MORPHINE 4 MG/1 ML VIAL IV PRN ×3 (09:05→22:16)
[2021-01-29] MEDS: ATORVASTATIN 80 MG TABLET PO SCH (20:15)
[2021-01-30] MEDS: DEXTROSE 5% LACTATED RINGERS 1,000 ML IV SCH ×4 (02:14→22:22)
[2021-01-30] MEDS: LACTATED RINGERS 1,000 ML IV SCH (06:42)
[2021-01-30] MEDS: ALVIMOPAN 12 MG CAPSULE PO SCH ×2 (08:34→20:53)
[2021-01-30] MEDS: PANTOPRAZOLE 40 MG TABLET PO SCH (08:34)
[2021-01-30] MEDS: carvediloL 6.25 MG TABLET PO SCH (08:34)
[2021-01-30] MEDS: ASPIRIN EC 81 MG TABLET PO SCH (08:34)
[2021-01-30] MEDS: FERROUS SULFATE 325 MG TABLET PO SCH ×4 (08:35→20:53)
[2021-01-30] MEDS: ATORVASTATIN 80 MG TABLET PO SCH (20:53)
[2021-01-31] MEDS: DEXTROSE 5% LACTATED RINGERS 1,000 ML IV SCH ×4 (03:10→18:20)
[2021-01-31] MEDS: LACTATED RINGERS 1,000 ML IV SCH (06:09)
[2021-01-31 08:19] LABS: Basophils % 0.3 % (0.0-0.8); Eosinophils # 0.3 10*3/uL (0.0-0.87); Eosinophils % 3.3 % (0.00-10.9); Hematocrit 37.5 VOL% (42.0-52.0); Hemoglobin 12.1 GM/DL (14.0-18.0); Immature Granulocytes % 0.7 %; Immature Granulocytes Absolute 0.05 #; Lymphocytes # 0.9 10*3/uL (1.4-4.0); Lymphocytes % 11.6 % (21.2-54.2); Mean Corpuscular HGB Conc 32.3 GM/DL (32-36); Mean Corpuscular Volume 80.8 FL (87-102); Mean Platelet Volume 9.3 FL (9.6-12.0); Monocytes % 10.2 % (1.7-12.7); Neutrophils % 73.9 % (38.7-73.9); Platelet Count 267 T/CUMM (130-400); Red Blood Count 4.64 MC/CUMM (3.8-5.5); Red Cell Distribution Width 17.4 % (9.3-17.3); White Blood Count 7.6 T/CUMM (4-12)
[2021-01-31 08:38] LABS: Calcium 8.5 MG/DL (8.5-10.1); Osmolality,Calculated 269.1 MOS/KG (273-304)
[2021-01-31] MEDS: ASPIRIN EC 81 MG TABLET PO SCH (09:14)
[2021-01-31] MEDS: carvediloL 6.25 MG TABLET PO SCH (09:14)
[2021-01-31] MEDS: FERROUS SULFATE 325 MG TABLET PO SCH ×3 (09:15→21:41)
[2021-01-31] MEDS: ALVIMOPAN 12 MG CAPSULE PO SCH ×2 (09:15→21:41)
[2021-01-31] MEDS: PANTOPRAZOLE 40 MG TABLET PO SCH (09:15)
[2021-01-31] MEDS: ATORVASTATIN 80 MG TABLET PO SCH (21:43)
[2021-02-01] MEDS: DEXTROSE 5% LACTATED RINGERS 1,000 ML IV SCH ×2 (04:52→17:52)
[2021-02-01] MEDS: LACTATED RINGERS 1,000 ML IV SCH (06:23)
[2021-02-01] MEDS: MORPHINE 4 MG/1 ML VIAL IV PRN (08:47)
[2021-02-01] MEDS: PANTOPRAZOLE 40 MG TABLET PO SCH (09:56)
[2021-02-01] MEDS: FERROUS SULFATE 325 MG TABLET PO SCH ×3 (09:56→21:09)
[2021-02-01] MEDS: ALVIMOPAN 12 MG CAPSULE PO SCH ×2 (09:56→21:09)
[2021-02-01] MEDS: ASPIRIN EC 81 MG TABLET PO SCH (09:56)
[2021-02-01] MEDS: carvediloL 6.25 MG TABLET PO SCH (09:56)
[2021-02-01] MEDS: PIPERACILLIN/TAZOBACTAM 3,375 MG in SODIUM CHLORIDE 0.9% 100 ML IV SCH ×2 (11:49→16:04)
[2021-02-01] MEDS: ATORVASTATIN 80 MG TABLET PO SCH (21:09)
[2021-02-01] MEDS: SODIUM HYPOCHLORITE 0.25% IRRIG 473 ML BOTTLE TOP SCH (22:00)
[2021-02-02] MEDS: PIPERACILLIN/TAZOBACTAM 3,375 MG in SODIUM CHLORIDE 0.9% 100 ML IV SCH ×3 (01:08→16:32)
[2021-02-02 08:49] LABS: Basophils % 0.2 % (0.0-0.8); Eosinophils # 0.3 10*3/uL (0.0-0.87); Eosinophils % 7.9 % (0.00-10.9); Hematocrit 36.6 VOL% (42.0-52.0); Hemoglobin 11.4 GM/DL (14.0-18.0); Immature Granulocytes % 0.2 %; Immature Granulocytes Absolute 0.01 #; Lymphocytes # 0.7 10*3/uL (1.4-4.0); Lymphocytes % 16.9 % (21.2-54.2); Mean Corpuscular HGB Conc 31.1 GM/DL (32-36); Mean Corpuscular Volume 81.5 FL (87-102); Mean Platelet Volume 9.4 FL (9.6-12.0); Monocytes % 14.1 % (1.7-12.7); Neutrophils % 60.7 % (38.7-73.9); Platelet Count 323 T/CUMM (130-400); Red Blood Count 4.49 MC/CUMM (3.8-5.5); White Blood Count 4.2 T/CUMM (4-12)
[2021-02-02] MEDS: carvediloL 6.25 MG TABLET PO SCH (09:29)
[2021-02-02] MEDS: ASPIRIN EC 81 MG TABLET PO SCH (09:29)
[2021-02-02] MEDS: FERROUS SULFATE 325 MG TABLET PO SCH ×3 (09:30→21:13)
[2021-02-02] MEDS: PANTOPRAZOLE 40 MG TABLET PO SCH (09:30)
[2021-02-02 09:35] LABS: Eosinophils 6 % (0-10); Hypochromasia 1+; Lymphocytes 14 % (20-55); Microcytosis 1+; Ovalocytes Slight; Platelet Estimate Adequate; Segmented Neutrophils 73 % (50-85); Total Cells Counted 100
[2021-02-02] MEDS: ALVIMOPAN 12 MG CAPSULE PO SCH ×2 (10:21→21:14)
[2021-02-02] MEDS: MORPHINE 4 MG/1 ML VIAL IV PRN (15:51)
[2021-02-02] MEDS: SODIUM HYPOCHLORITE 0.25% IRRIG 473 ML BOTTLE TOP SCH ×2 (16:00→21:14)
[2021-02-02] MEDS: DEXTROSE 5% LACTATED RINGERS 1,000 ML IV SCH ×2 (21:13→21:15)
[2021-02-02] MEDS: ATORVASTATIN 80 MG TABLET PO SCH (21:14)
[2021-02-03] MEDS: PIPERACILLIN/TAZOBACTAM 3,375 MG in SODIUM CHLORIDE 0.9% 100 ML IV SCH ×2 (00:24→09:33)
[2021-02-03 07:42] VITALS: BP 141/81
[2021-02-03] MEDS: SODIUM HYPOCHLORITE 0.25% IRRIG 473 ML BOTTLE TOP SCH (09:32)
[2021-02-03] MEDS: ASPIRIN EC 81 MG TABLET PO SCH (09:32)
[2021-02-03] MEDS: ALVIMOPAN 12 MG CAPSULE PO SCH (09:32)
[2021-02-03] MEDS: carvediloL 6.25 MG TABLET PO SCH (09:32)
[2021-02-03] MEDS: FERROUS SULFATE 325 MG TABLET PO SCH (09:32)
[2021-02-03] MEDS: PANTOPRAZOLE 40 MG TABLET PO SCH (09:32)
== END 2021-02-03 11:18 | disposition home or self-care (01) | DRG 330 ==
LOC: N.OR 06:09 → N.SDSINP 06:13 → N.3E 14:00
PROVIDERS: ADMIT Surgery; ATTEND Surgery